=== PATIENT | female | born 1960 | race Caucasian/White ===

== ENCOUNTER 2020-04-18 16:42 | Emergency (ER) | payer BC ==
[~2020-04-18] VITALS: Ht 152.4 cm; Wt 79.4 kg
[2020-04-18] MEDS ORDERED: ASPIR 8181 MG PO (17:00)
[2020-04-18] MEDS ORDERED: K-TAB ER20 MEQ PO (18:49)
--- NOTE | 2020-04-19 12:57 | EKG ---
[facility] [address] [facility] [place] [address] Signed Sinus tachycardia Biatrial enlargement Inferior-posterior infarct , age undetermined Abnormal ECG No previous ECGs available Confirmed by REJI OLIVEIRA MD ([id number] on 04/19/2020 12:57:39 PM Electronically Signed By: REJI OLIVEIRA MD 04/19/20 1257 PATIENT NAME: DAVI MONTENEGRO ROSELIA Electrocardiogram DATE OF : 60 PHYSICIAN: REJI OLIVEIRA MD REPORT #: [id number] REPORT IS CONFIDENTIAL AND NOT TO BE RELEASED WITHOUT AUTHORIZATION
== END 2020-04-18 19:07 | disposition home or self-care (01) ==
LOC: ED 16:42
DX: R00.2 Palpitations (principal); E87.6 Hypokalemia; I10 Essential (primary) hypertension; Z87.891 Personal history of nicotine dependence; Z79.82 Long term (current) use of aspirin
CPT/HCPCS: 71045; 80053; 84484; 85025; 93005; 93010; 99285-25; C9803; U0002